=== PATIENT | male | born 1980 | race Caucasian/White ===

== ENCOUNTER → 2017-11-19 15:35 | Outpatient (CLI) | payer MEDICAID, SELFPAY ==
--- NOTE | 2017-11-19 15:50 | XR_ITS ---
XR chest 2V HISTORY: ITS.REASON: SHORTNESS OF BREATH,H/O TOBACCO USE ORDERING PHYSICIAN: Carlin Puentes MD PATIENT AGE: 37 years COMPARISON: 06/25/2009 FINDINGS: The cardiomediastinal silhouette and pulmonary vascularity are within normal limits. The lungs are clear without infiltrates, suspicious nodules, or pleural effusions. No acute bony abnormalities. IMPRESSION: Negative chest, no acute finding
--- NOTE | 2017-11-19 15:50 | XR_ITS ---
EXAM: XR cervical spine 5V HISTORY: Neck pain ITS.REASON: CERVICAL RADICULOPATHY ORDERING PHYSICIAN: Carlin Puentes MD PATIENT AGE: 37 years COMPARISON: None FINDINGS: Normal alignment. No fracture or dislocation. No lytic or blastic change. No significant degenerative change. The disc spaces are preserved. No evidence of cervical rib. No obvious foraminal narrowing IMPRESSION: Negative cervical spine
== END ==
PROVIDERS: PCP Family Medicine; Visit Provider Family Medicine
DX: R06.02 Shortness of breath (principal); M54.12 Radiculopathy, cervical region; F17.210 Nicotine dependence, cigarettes, uncomplicated
CPT/HCPCS: 71046; 72050

== ENCOUNTER → 2017-12-02 14:14 | Outpatient (CLI) | payer MEDICAID, SELFPAY ==
[2017-12-02 14:55] VITALS: PULSE 72; PULSE 78
== END ==
PROVIDERS: Family Provider Family Medicine; PCP Family Medicine; Visit Provider Family Medicine
DX: R06.02 Shortness of breath (principal); F17.210 Nicotine dependence, cigarettes, uncomplicated
CPT/HCPCS: 94060; 94640

== ENCOUNTER → 2018-03-25 13:15 | Outpatient (CLI) | payer MEDICAID, SELFPAY ==
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
== END ==
PROVIDERS: PCP Family Medicine; Visit Provider Family Medicine
DX: M54.12 Radiculopathy, cervical region (principal)
CPT/HCPCS: 72141; 76376

== ENCOUNTER → 2020-03-09 13:15 | Outpatient (CLI) | payer OTHER, SELFPAY ==
[2020-03-09 14:45] LABS: Hematocrit 45.1 % (42.0-52.0); Mean Corpuscular HGB Conc 33.2 g/dL (31.8-35.4); Mean Corpuscular Hemoglobin 31.9 pg (27.0-31.2); Mean Corpuscular Volume 95.9 fl (80-94); Mean Platelet Volume 7.5 fl (7.4-10.4); Platelet Count 264 K/mm3 (142-424); Red Cell Distribution Width 12.9 % (11.5-17.5)
[2020-03-09 14:46] LABS: Basophils # 0.1 K/mm3 (0-0.2); Basophils % 0.7 % (0.1-2.0); Eosinophils # 0.3 K/mm3 (0.0-0.4); Eosinophils % 4.3 % (0.1-12.0); Lymphocytes # 1.1 K/mm3 (0.7-4.5); Lymphocytes % 26.3 % (10-50); Monocytes # 0.6 K/mm3 (0.1-1.0); Monocytes % 7.1 % (1.7-9.3); Neutrophils # 4.9 K/mm3 (1.8-7.8); Neutrophils % 61.6 % (37.0-80.0)
[2020-03-09 14:53] LABS: Alanine Aminotransferase 25 U/L (12-78); Albumin Level 4.9 g/dl (3.5-5.0); Alkaline Phosphatase 58 U/L (38-126); Anion Gap 7.7 mEq/L (5-15); Aspartate Amino Transferase 33 U/L (17-59); Bilirubin,Direct 0.1 mg/dl (0.0-0.4); Bilirubin,Indirect 0.5 mg/dL (0.0-0.9); Bilirubin,Total 0.6 mg/dl (0.2-1.3); Bilirubin,Unconjugated 0.5 mg/dL (0.0-1.1); Blood Urea Nitrogen 13 mg/dl (9-20); Calcium 9.9 mg/dl (8.4-10.2); Carbon Dioxide 32 mmol/L (22.0-30.0); Chloride 104 mmol/L (98-107); Estimated Glomerular Filt Rate 108 ml/min (>60); GFR (African American) 130 ML/MIN (>60); Glucose 94 mg/dl (74-100); Potassium 4.7 mmoL/L (3.5-5.1); Sodium 139 mmol/L (136-145); Total Protein,Serum 7.4 g/dl (6.3-8.2)
[2020-03-11 13:08] LABS: Hep A Ab, IgM Negative (Negative); Hepatitis B Core Antibody IgM Negative (Negative); Hepatitis B Surface Antigen Negative (Negative)
[2020-03-11 14:02] LABS: Hepatitis C Antibody 4.6 s/co ratio (0.0-0.9)
[2020-03-11 16:05] LABS: HIV Screen 4th Generation wRfx Non Reactive (Non Reactive)
== END ==
PROVIDERS: Visit Provider Family Medicine Addiction Medicine
DX: F11.20 Opioid dependence, uncomplicated (principal)
CPT/HCPCS: 36415; 80048; 80074; 80076; 85025; 86592; 86703; G0432

== ENCOUNTER → 2021-05-13 15:02 | Outpatient (CLI) | payer OTHER, SELFPAY ==
--- NOTE | 2021-05-13 15:06 | XR_ITS ---
PROCEDURE: XR ELBOW RT MIN 3V CLINICAL INDICATION: RT ELBOW PAIN COMPARISON: No exams were available for comparison FINDINGS: No fracture or dislocation. No lytic or blastic change. There is normal mineralization. The joint spaces are well-preserved. No significant degenerative/arthritic changes. No erosive changes evident. Other findings:None. IMPRESSION: No acute findings. Dictated by: Nikhil Espinoza MD 05/13/2021 17:46 Nikhil Espinoza MD in [place] 05/13/2021 17:46
== END ==
PROVIDERS: PCP Family Medicine; Visit Provider Family Medicine
DX: M25.521 Pain in right elbow (principal)
CPT/HCPCS: 73080

== ENCOUNTER → 2021-07-19 14:54 | Outpatient (CLI) | payer OTHER, SELFPAY ==
--- NOTE | 2021-07-19 15:02 | MR_ITS ---
FINAL REPORT CLINICAL HISTORY: RT elbow pain. ANTERIOR ELBOW PAIN [id number] SINCE LIFTING HEAVY OBJECT. FINDINGS: Multiplanar MR imaging of the right elbow was performed without contrast. The bony structures are intact without evidence of fracture, bone bruise or marrow edema. There is no evidence of osteochondral lesion. The ligaments appear intact. The common extensor tendon is intact. The common flexor tendon is intact. There is mild edema along the course of the biceps tendon. There is a partial insertional tear of the biceps tendon. The distal triceps tendon is intact. The brachialis tendon is intact. The musculature has an unremarkable appearance. No soft tissue mass or cyst is identified. No focal abnormality is identified of the ulnar nerve. IMPRESSION: Partial insertional tear of the biceps tendon. Reviewed, Interpreted and Dictated by Ramos Gonzalez MD Transcribed by Ruddy Ballesteros Authenticated by Ramos Gonzalez MD on 07/22/2021 12:36:23 PM [facility]
== END ==
PROVIDERS: PCP Family Medicine; Visit Provider Orthopaedic Surgery
DX: M25.521 Pain in right elbow (principal)
CPT/HCPCS: 73221

== ENCOUNTER 2021-10-01 15:00 | Outpatient (RCR) | payer OTHER, SELFPAY ==
--- NOTE | 2021-08-02 15:17 | HMH.OTOPEV ---
OT Inpatient Evaluation Rehab OT Outpatient Eval Start: 08/02/21 14:59 Freq: Status: Active Protocol: Document 08/02/21 14:59 RADHA (Rec: 08/02/21 15:17 RADHA [id number]) Electronically Signed By Kari Goodrich OT 08/02/21 14:59 Outpatient Therapy Subjective History Subjective History 41 year old male referred to skilled OP OT services for R UE partial incestional bicep tendon tear, rt elbow. Patient exhibit AROM WNF of BUE of shoulder flex/ext/abd, elbow flex/ext, RD/UD/pronation/ supination. Patient recieved x-ray on R elbow with no acute findings on 05/13/21 and MRI on R UE elbow on 07/19/21 with findings listed above. However Patient has pain during pronation and supination tasks during lifting weight. 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 Chief Complaint Pain,Weakness,Decreased General Machine Operator Strength Symptom Type Ache Symptoms Relieved By Rest/Positioning,Heat Symptoms Aggravated By Physical Activity Prior Functional Limitations None Current Functional Limitations Reaching,Lifting,Recreation Activity Symptom Description Constant but Variable Level of pain today (0-10) 2 Pain scale - at its best (0-10) 2 Pain scale - at its worst (0-10) 10 Shoulder/Elbow Eval Shoulder Objective Measurements Shoulder MMT Right Shoulder Abduction Strength Grade 4 Good Shoulder Extension Strength Grade 4 Good Shoulder Flexion Strength Grade 4 Good Shoulder Horizontal Abduction Strength 4 Good Grade Shoulder Horizontal Adduction Strength 4 Good Grade Infraspinatus/Teres Minor Strength Grade 4 Good Shoulder External Rotation Strength 4 Good Grade Shoulder Internal Rotation Strength 4 Good Grade Elbow Objective Measurements Elbow MMT Right Elbow Flexion Strength Grade 4 Good Biceps Brachii Strength Grade 4 Good Brachioradialis Strength Grade 4 Good Brachialis Strength Grade 4 Good Elbow Extension Strength Grade 4 Good Triceps Brachii Strength Grade 4 Good Wrist/Hand Eval Gri
--- NOTE | 2021-09-12 09:04 | HMH.RHREAS ---
Rehab Reassessment Rehab OP Re-assessment Start: 09/12/21 08:59 Freq: Status: Active Protocol: Document 09/11/21 03:45 JOSETTENACHO (Rec: 09/12/21 09:04 REGANFABIANO [id number]) Electronically Signed By Kari Goodrich, OT 09/11/21 03:45 Rehab Re-assessment Subjective Subjective My Objective Objective Notes 41 year old male referred to skilled OP OT services for R UE partial incestional bicep tendon tear, rt elbow. Patient exhibit AROM WNF of BUE of shoulder flex/ext/abd, elbow flex/ext, RD/UD/pronation/ supination. Patient recieved x-ray on R elbow with no acute findings on 05/13/21 and MRI on R UE elbow on 07/19/21 with findings listed above. 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 Patient stated to be working more and lifting heavier items with the R UE with minimal pain/ discomfort. Patient has been d /c from ortho and advise to continue skilled OP OT services til reaching max potential. Patient has agreed to continue skilled OP OT services 1x/wk for 4 weeks in order to continue improve pain to the R elbow. Assessment Progress Assessment Progressing as Expected Assessment Notes 4 to 4+/5 strength in elbow throughout 5/10 pain at worst in elbow while at rest and movement Patient goals met All STGs and LTGs met. However OT will be updating LTGs for additional month in order for patient to reach max potential . Goals Not Met n/a Revised Goals 1. 4+/5 strength in elbow throughout 2. 3/10 pain at worst in elbow while at rest and movement Plan Plan Continue POC Frequency of Therapy 1x/wk Duration of therapy
== END 2021-10-01 15:05 | disposition home or self-care (01) ==
LOC: OT 15:00
PROVIDERS: PCP Family Medicine; Visit Provider Orthopaedic Surgery
DX: M79.601 Pain in right arm (principal); M66.221 Spontaneous rupture of extensor tendons, right upper arm; M25.521 Pain in right elbow
CPT/HCPCS: 97010; 97014; 97035; 97110; 97140; 97164; 97165; G0283

== ENCOUNTER 2023-10-19 13:15 | Emergency (ER) | payer OTHER, SELFPAY ==
[2023-10-19 13:20] VITALS: BP 141/80; PULSE 81; RESP 18; TEMP 36.9; O2SAT 97; BMI 28.5
--- NOTE | 2023-10-19 13:20 | XR_ITS ---
FINAL REPORT CLINICAL HISTORY: fell FINDINGS: RIGHT FOOT 3 views of the right foot were obtained. There is no acute fracture or dislocation. Visualized joint spaces are normally aligned. Soft tissues are unremarkable. IMPRESSION: No acute bony abnormality. Reviewed, Interpreted and Dictated by Jordan Pereira MD Transcribed by Qiana Ocampo Authenticated and [facility]
--- NOTE | 2023-10-19 13:20 | XR_ITS ---
FINAL REPORT CLINICAL HISTORY: fell FINDINGS: RIGHT ANKLE 3 views of the right ankle were obtained. There is no acute fracture or dislocation. The mortise is intact. Visualized joint spaces are normally aligned. Soft tissues are unremarkable. IMPRESSION: No acute bony abnormality. Reviewed, Interpreted and Dictated by Jordan Pereira MD Transcribed by Qiana Ocampo Authenticated and [facility]
--- NOTE | 2023-10-19 13:29 | EXP.UTC ---
Discharge Plan Disposition Patient Disposition: Home, Self-Care Condition: Good Prescriptions Prescriptions: New ibuprofen [IBU] 800 mg tablet 800 mg PO Q8HP PRN (Reason: Moderate Pain) Qty: 30 0RF No Action buprenorphine-naloxone 8-2 mg tablet, sublingual 2 tab SUBLINGUAL DAILY Referrals Follow up/Referrals: Jordan Sher MD [Primary Care Provider] - See instructions Ivette Crouch DPM [Staff Physician] - See instructions Activity Restrictions/Add. Instructions Additional Instructions/Restrictions: Rest the extremity, apply ice for 15 minutes as tolerated three or four times per day, Elevate the extremity as tolerated while you are resting. Take ibuprofen for pain. I sent in a prescription to your pharmacy. Follow up with Dr. Crouch (podiatry). Sometimes there can be fractures that don't show up well on the first set of x-rays. So, you should follow up if you continue to have symptoms. I put in a referral but you need to call her office and schedule an appointment. Follow up with your regular doctor. GO TO THE ER FOR ANY WORSENING SYMPTOMS Clinical Impressions Clinical Impression: Right foot sprain, Right ankle sprain Stand Alone Forms Stand Alone Forms: Work/School Release Instructions Patient Instructions: DI for Ankle Sprain, DI for Foot Sprain Discharge ED Provider: German Valencia [facility] General Stated complaint: AO-Pain and swelling in R ankle Time Seen by Provider: 10/19/23 13:29 History of Present Illness Provider Complaint: He states that he stepped on uneven ground yesterday and it caused him to twist his right foot and ankle and then fall. Since then he has had right foot and ankle pain and swelling. He states that trying to bear weight on the foot makes his pain much worse. He denies any other injury. Related Data Home Medications Medication Instructions Recorded Confirmed buprenorphine 8 mg-naloxone 2 mg 2 tab sublingual DAILY 07/16/21 10/19/23 sublingual tablet Previous Rx's Medication Instructions Recorded ibuprofen 800 mg tablet (IBU) 800 mg PO Q8HP PRN Moderate Pain 10/19/23 #30 tabs Allergies Allergy/AdvReac Type Severity Reaction Status Date / Time morphine Allergy Verified 10/19/23 13:35 [facility] Disclaimer: The information contained in this section may have been updated after the patient was seen, as this information can be updated by other users. Social History Smoking Status: Current every day smoker tobacco type: cigarettes alcohol intake: never substance use type: marijuana current occupational status: employed Travel in the last 8 weeks: None ROS Obtained: Yes All systems reviewed & no additional complaints except as documented Constitutional Constitutional: Denies chills and Denies fever(s) Eyes Eyes: Denies eye discharge ENT Ears, Nose, Mouth, and Throat: Denies dizziness, Denies otalgia and Denies sore throat Cardiovascular Cardiovascular: Denies chest pain Respiratory Respiratory: Denies shortness of breath, Denies chest congestion, Denies cough, Denies stridor and Denies wheezing Gastrointestinal Gastrointestingal: Denies nausea or vomiting Musculoskeletal Musculoskeletal: Reports as per HPI Integumentary/Breasts Skin/Breast: Denies redness, Denies rash and Denies wounds Neurologic Neurologic: Denies dizziness and Denies paresthesias Allergic/Immunologic Allergic/Immunologic: Denies wheezing Physical Exam General General appearance: alert and in no apparent distress Head Head exam: atraumatic, normocephalic and normal inspection Eye Eye exam: Present normal appearance, PERRL and EOMI ENT ENT exam: Present normal exam, normal oropharynx, mucous membranes moist, TM's normal bilaterally and normal external ear exam Neck Neck exam: Present normal inspection, full ROM and trachea midline; Absent meningismus or lymphadenopathy Chest Chest inspection: Present normal inspection and symmetric chest wall rise; Absent tenderness Respiratory Respiratory exam: Present normal lung sounds bilaterally; Absent respiratory distress Cardiovascular Cardiovascular exam: Present regular rate and normal rhythm; Absent JVD Abdominal Exam Abdominal exam: Present soft and normal bowel sounds; Absent distention, tenderness or guarding Extremities Exam Extremities exam: Present normal capillary refill; Absent calf tenderness Expanded Lower Extremity Exam Right: Knee exam: Present normal inspection, full ROM and knee extension intact; Absent tenderness Lower leg exam: Present normal inspection, full ROM and Achilles tendon intact; Absent Homans' sign Ankle exam: Present tenderness and swelling; Absent full ROM, abrasion, laceration, ecchymosis, deformity, crepitus, dislocation, erythema, tenderness over talofibular lig or anterior draw sign Foot/toe exam: Present tenderness and swelling; Absent full ROM, abrasion, laceration, ecchymosis, deformity, crepitus, dislocation, erythema, amputation, puncture wound, foreign body, calcaneal tenderness, tenderness at base of 5th metatarsal, nail avulsion or subungual hematoma Neurovascular/Tendon exam: Present normal capillary refill, normal 2-point discrimination and normal fine/light touch; Absent pulse deficit, motor deficit, sensory deficit, tendon deficit, extremity cold to touch or pallor Gait: observed and limited by pain Back Exam Back exam: Present normal inspection; Absent tenderness Neurological Exam Neurological exam: Present alert and oriented X3 Psychiatric Psychiatric exam: Present normal affect and normal mood Skin Skin exam: Present warm, dry, intact and normal color Lymphatic Lymphatic Findings: no adenopathy Medical Decision Making Medical Records Medical records reviewed: No I reviewed the patient's medical records. Maurizio Inquiry Pt receiving controlled substance: No Orders (Tests/Meds): ORDERS Category Date Time Status Ankle XR -Right minimum 3 Views [XR ankle RT min 3V] Exams 10/19/23 13:20 Ordered Stat XR foot RT min 3V Stat Exams 10/19/23 13:20 Ordered Radiology Data #1: Image(s): Ankle Image Reviewed: Yes I reviewed the patient's radiology image and Yes I have reviewed radiologist's interpretation Preliminary Findings: No Fracture Seen Accession No. : [id number] Patient Name / ID : Rl Vazquez / [id number] Exam Date : 10/19/2023 13:34:56 ( Final ) Study Comment : Sex / Age : M / 43Y Creator : Edward Pereira MD Dictator : Saw Offbearer : Inspector Plating : Edawrd Pereira MD Approver2 : Report Date : 10/19/2023 16:03:26 My Comment : FINAL REPORT CLINICAL HISTORY: fell FINDINGS: RIGHT ANKLE 3 views of the right ankle were obtained. There is no acute fracture or dislocation. The mortise is intact. Visualized joint spaces are normally aligned. Soft tissues are unremarkable. IMPRESSION: No acute bony abnormality. Reviewed, Interpreted and Dictated by Jordan Pereira MD Transcribed by Qiana Ocampo Authenticated and [facility] #[facility]: Image(s): Foot/Toes Image Reviewed: Yes I reviewed the patient's radiology image and Yes I have reviewed radiologist's interpretation Preliminary Findings: No Fracture Seen Accession No. : [id number] Patient Name / ID : Rl Vazquez / [id number] Exam Date : 10/19/2023 13:32:40 ( Final ) Study Comment : Sex / Age : M / 43Y Creator : Edward Pereira MD Dictator : Saw Offbearer : Inspector Plating : Edward Pereira MD Approver2 : Report Date : 10/19/2023 16:03:27 My Comment : FINAL REPORT CLINICAL HISTORY: fell FINDINGS: RIGHT FOOT 3 views of the right foot were obtained. There is no acute fracture or dislocation. Visualized joint spaces are normally aligned. Soft tissues are unremarkable. IMPRESSION: No acute bony abnormality. Reviewed, Interpreted and Dictated by Jordan Pereira MD Transcribed by Qiana Ocampo Authenticated and [facility] Procedures Risk/Benefits of Procedure(s) Were Explained: Yes Orthopedic Splinting/Casting Injury #1: Side: right Lower Extremity Injury Location: lower leg, ankle and foot Lower Extremity Immobilizer: boot orthosis and applied by nurse/dr zapien Other Orthopedic Equipment: crutches Post Cast/Splinting Neuro Status: intact and no change Post Cast/Splinting Vasc Status: intact and no change
--- NOTE | 2023-10-19 13:39 | PC.NURSE ---
Pt went to [facility]
[2023-10-19 16:13] VITALS: BP 141/80; PULSE 81; RESP 18; TEMP 36.9; O2SAT 97
== END 2023-10-19 16:13 | disposition home or self-care (01) ==
PROVIDERS: Emergency Provider Nurse Practitioner Family; PCP Family Medicine
DX: S93.401A Sprain of unspecified ligament of right ankle, initial encounter (principal); S93.601A Unspecified sprain of right foot, initial encounter; X50.1XXA Overexertion from prolonged static or awkward postures, initial encounter
CPT/HCPCS: 73610; 73630; 99204; 99212; G0463